=== PATIENT | male | born 1970 | race Two or more races ===

== ENCOUNTER 2018-03-18 08:33 | Day surgery (SDC) | payer OTHER ==
[2018-03-18] VITALS (10 sets, daily range): BP systolic 113–146; BP diastolic 71–81
[~2018-03-18] VITALS: Ht 182.9 cm; Wt 93.0 kg
--- NOTE | 2018-03-18 07:48 | Pre-Procedure Note/Attestation ---
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 I attest that, if there was a reasonable possibility of needing a blood transfusion, the patient (or the patient's legal artists' booking representative) was given the [place] [facility] [employer] [facility] standardized written summary, pursuant to the Ryan Allison Blood Safety Act ([place] Health and Safety Code # 1645, as amended). I attest that I re-evaluated the patient just prior to the surgery and that there has been no change in the patient's H&P, except as documented below: Michael Bass MD March 18, 2018 07:48
--- NOTE | 2018-03-18 07:49 | Operative Note - PDOC ---
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
[~2018-03-18 08:33] MED LIST: NKM; ceFAZolin sod 1 GM in D5W 55 ML IVP SCH; celeBREX 200mg Cap **SURGERY PATIENTS ONLY ORAL SCH; oxyCONTIN 20mg tab ORAL SCH
[2018-03-18] MEDS ORDERED: Bacitracin 50000 Units Vial ONE (10:56)
[2018-03-18] MEDS ORDERED: Bupivacaine 0.25% Inj 30ml INJ ONE (10:56)
[2018-03-18] MEDS ORDERED: Lidocaine 1% 10mg/ml/Epi 0.005mg/ml 30ml vial INJ ONE (10:56)
[2018-03-18] MEDS ORDERED: NeoSporin Gu Irrig 1ml Amp IRRIG ONE (10:56)
[2018-03-18] MEDS ORDERED: Zemuron 50mg/5ml Inj IV ONE (11:24)
[2018-03-18] MEDS ORDERED: Propofol 200mg/20ml IV ONE ×2 (11:24→13:42)
[2018-03-18] MEDS ORDERED: fentaNYL 100 mcg/2 mL IV ONE ×3 (11:24→14:21)
[2018-03-18] MEDS ORDERED: Dexamethasone 4mg/ml vial ONE (11:24)
[2018-03-18] MEDS ORDERED: EPINEPHrine 1mg/1ml Amp ONE (11:24)
[2018-03-18] MEDS ORDERED: Glycopyrrolate 0.2mg/ml 1ml Vial ONE (11:30)
[2018-03-18] MEDS ORDERED: NS Irrig 2000ml IRRIG ONE (11:30)
[2018-03-18] MEDS ORDERED: NS Irrig 1000ml ONE (11:30)
[2018-03-18] MEDS ORDERED: Sterile Water Irrig 1000ml IRRIG ONE (11:30)
[2018-03-18] MEDS ORDERED: LR 1000ml ONE (11:30)
[2018-03-18] MEDS ORDERED: Vancomycin 1gm inj IVPB ONE (12:12)
[2018-03-18] MEDS ORDERED: Vancomycin 1 GM in D5W 275 ML IVPB ONE (12:30)
--- NOTE | 2018-03-18 12:33 | Anethesia Preoperative Eval ---
Anesthesia Pre-op PMH/ROS General Date of Evaluation: March 18, 2018 Time of Evaluation: 11:15 Anesthesiologist: ASA Score: ASA 2 Mallampati Score Class I : Soft palate, uvula, fauces, pillars visible Class II: Soft palate, uvula, fauces visible Class III: Soft palate, base of uvula visible Class IV: Only hard plate visible Mallampati Classification: Class II Surgeon: kiko Diagnosis: s/p left clavical orif Surgical Procedure: revision of orif left clavice Anesthesia History: emergence delirium Family History: no anesthesia problems Allergies: Coded Allergies: No Known Allergies (Unverified , 03/18/18) Medications: see eMAR Past Medical History Cardiovascular: Denies: HTN, CAD, MD, valve dz, arrhythmia, other Pulmonary: Denies: asthma, COPD, SARINA, other Gastrointestinal/Genitourinary: Denies: GERD, CRI, ESRD, other Neurologic/Psychiatric: Denies: dementia, CVA, depression/anxiety, TIA, other Endocrine: Denies: DM, hypothyroidism, steroids, other HEENT: Denies: cataract (L), cataract (R), glaucoma, [place] (L), [place] (R), other Hematology/Immune: Denies: anemia, DVT, bleeding disorder, other Musculoskeletal/Integumentary: Reports: other - h/o fractured left clavicle s/ p orif PSxH Narrative: left clavical, right knee surgeries Anesthesia Pre-op Phys. Exam Physician Exam Last Vital Signs Date Time Temp Pulse Resp B/P (MAP) Pulse Ox O2 Delivery O2 Flow Rate FiO2 03/18/18 09:15 97.1 58 18 116/81 97 Room Air 97.1 Constitutional: NAD Cardiovascular: RRR Respiratory: CTA Gastrointestinal: S/NT/ND Airway Exam Mallampati Score: Class II MO: full ROM: full Teeth: intact Dentures: no upper, no lower Anesthesia Pre-op A/P Risk Assessment & Plan Assessment: ASA 2, okay to proeed with surgery Plan: ETGA Pre-Antibiotics Drug: ancef 2grams, Vancomycin 1gram Given Within 1 Hr of Incision: Yes Lauren Young M.D. March 18, 2018 12:33
[2018-03-18] MEDS ORDERED: Neostigmine 1mg/ml 10ml Inj ONE (14:08)
[2018-03-18] MEDS ORDERED: Ketorolac 30mg Inj ONE (14:22)
--- NOTE | 2018-03-18 14:43 | Immediate Post-Op Evaluation ---
Immediate Post-Op Evalulation Immediate Post-Op Evalulation Procedure: revision of orif left clavicle Date of Evaluation: March 18, 2018 Time of Evaluation: 14:25 IV Fluids: LR 800ml Blood Products: 0 Estimated Blood Loss: 30ml Urinary Output: 0 Blood Pressure Systolic: 131 Blood Pressure Diastolic: 79 Pulse Rate: 59 Respiratory Rate: 16 O2 Sat by Pulse Oximetry: 99 Temperature (Fahrenheit): 97.2 Pain Score (1-10): 5 Nausea: No Vomiting: No Complications none Patient Status: awake, patent, none Hydration Status: adequate Drug: ancef 2 grams, vancomycin 1 gram Given Within 1 Hr of Incision: Yes Time Given: 12:15 Lauren Young M.D. March 18, 2018 14:43
[2018-03-18] MEDS ORDERED: Norco 5mg/325mg tab ORAL PRN (15:30)
[2018-03-18] MEDS ORDERED: D5 1/2NS 1,000 ML IV SCH (15:30)
[2018-03-18] MEDS ORDERED: Tylenol #3 tab (300mg/30mg) ORAL PRN (15:30)
[2018-03-18] MEDS ORDERED: LR 1000ml 1,000 ML IVLG SCH (16:04)
--- NOTE | 2018-03-18 16:06 | Diagnostic Imaging Report ---
Indication: Fracture, intraoperative Technique: Intraoperative images Comparison: none Findings: Intraoperative images demonstrate placement of sideplate and surgical screws reducing distal clavicular fracture. Impression: Intraoperative imaging, as described
--- NOTE | 2018-03-18 16:08 | 48 Hour Post Anesthesia Eval ---
Post Anesthesia Evaluation Procedure: revision of orif left clavicle Date of Evaluation: March 18, 2018 Time of Evaluation: 15:30 Blood Pressure Systolic: 133 0: 78 Pulse Rate: 54 Respiratory Rate: 18 Temperature (Fahrenheit): 97.5 O2 Sat by Pulse Oximetry: 96 Airway: patent Nausea: No Vomiting: No Hydration Status: adequate Mental Status/LOC: patient returned to baseline Post-Anesthesia Complications: none Follow-up care needed: ready to discharge Lauren Young M.D. March 18, 2018 16:08
[2018-03-18] MEDS ORDERED: Labetalol 5mg/ml 20ml vial IV PRN (16:15)
[2018-03-18] MEDS ORDERED: DiphenhydrAMINE 50mg/ml Inj IVP PRN (16:15)
[2018-03-18] MEDS ORDERED: fentaNYL 100 mcg/2 mL IV PRN (16:15)
--- NOTE | 2018-03-19 10:30 | Operative Note - Dictated ---
DATE OF OPERATION: 03/18/2018 PREOPERATIVE DIAGNOSIS: Status post ORIF, left clavicle fracture with failed hardware. POSTOPERATIVE DIAGNOSIS: Status post ORIF, left clavicle fracture with failed hardware. PROCEDURES: 1. Revision, ORIF, left comminuted clavicle fracture. 2. Removal of left clavicle hardware, 1 plate and 7 screws. 3. Irrigation and debridement, left clavicle. 4. Complex closure measuring 10 cm. SURGEON: Michael Bass M.D. ANESTHESIA: Interscalene with general. INDICATION FOR PROCEDURE: The patient is a pleasant gentleman, who underwent open reduction and internal fixation of left clavicle fracture, did well. On postop 6-week visit, imaging studies showed complete pulling out of all the distal screws. There was prominence and tenting of the skin and it was felt that he was indicated for operative fixation and removal of the hardware. I discussed with him in detail that based on the intraoperative findings, if there was a nonunion of the clavicle, then revision open reduction and internal fixation would be performed either through a superior plate or anterior plate. Additional risks of infection, nerve or vessel damage, risk of anesthesia, medical complications, DVT, PE, and mortality risks were all discussed with the patient. DESCRIPTION OF PROCEDURE: After informed consent was obtained, the patient was brought to the operating room and placed under interscalene with general anesthesia. The patient was then carefully placed in 30-degree beach-chair position. Left shoulder was prepped and draped in sterile manner. Time-out was performed. The previous scar was removed. Blunt dissection down to the trapezial fascia was performed. The trapezial fascia was dissected along the plate. Once the plate was identified, the 3 distal and 3 proximal screws and plate were removed. At this point, the comminution seemed like it healed up pretty well. There was a longitudinal split in the center of the clavicle which was not completely healed. Therefore, it was felt that revision ORIF of the clavicle was reasonable. Given the holes and the fact that the bone quality was somewhat compromised to cause failure of fixation, I decided to go anteriorly. Therefore, an anterior plate was selected and contoured along the clavicle given that the majority of the clavicle had healed except for that one area. It was not necessary to use a very extended plate. At this point, the plate was secured along the anterior surface of the clavicle with multiple cortical screws. Once that was done, again the Rickey putty was placed along the area of the previous fracture site and impacted into place. Of note, prior to application of the plate irrigation, bacitracin was used to irrigate the soft tissue and the bone. Once the [place]ndyl putty was placed, the trapezial fascia was approximated with #1 Vicryl sutures. Subcutaneous vancomycin powder was placed. Subcutaneous tissues were approximated with 2-0 Vicryl sutures. Skin was closed with 3-0 Monocryl sutures. Steri-Strips and sterile dressing were applied. The patient was awoken and taken to recovery room with stable vital signs. ESTIMATED BLOOD LOSS: 50 mL. COMPLICATIONS: None. SPECIMENS: None. EXPLANTS: Include 1 plate, 7 screws. IMPLANTS: Include [place] anterior distal clavicle plate with six screws. Michael Bass M.D. DR: Maria M JOB#: [id number] CC: [id number]
== END 2018-03-18 17:00 | disposition home or self-care (01) ==
LOC: SUR 08:33
DX: S42.032G Displaced fracture of lateral end of left clavicle, subsequent encounter for fracture with delayed healing (principal); Y93.23 Activity, snow (alpine) (downhill) skiing, snowboarding, sledding, tobogganing and snow tubing; E78.5 Hyperlipidemia, unspecified; F17.200 Nicotine dependence, unspecified, uncomplicated
CPT/HCPCS: 20680; 23515; 73000; 76001; J0171; J0690; J1100; J1885; J2250; J2405; J2704; J2710; J3010; J3370; J3490; J7120